=== PATIENT | female | born 1990 | race Caucasian/White ===

== ENCOUNTER 2017-05-07 18:50 | Emergency (ER) | payer MEDICARE, MEDICAID ==
[2017-05-07] MEDS ORDERED: Sodium Chloride 0.9% 1,000 ML IV ONE (18:57)
[2017-05-07] MEDS ORDERED: Sodium Chloride 0.9% 2.5 ML Syringe FLUSH PRN (18:57)
[2017-05-07] MEDS ORDERED: Sodium Chloride 0.9% 10 ML Syringe FLUSH PRN (18:57)
--- NOTE | 2017-05-07 19:00 | EDM.PDOC ---
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 Past medical history: As per history of present illness and as reviewed below otherwise noncontributory. Surgical history: As per history of present illness and as reviewed below otherwise noncontributory. Social history: No reported history of drug or alcohol abuse. Family history: As per history of present illness and as reviewed below otherwise noncontributory. Physical exam: HEENT: Minor intraoral injury good hemostasis, normocephalic, pupils reactive, negative for conjunctival pallor or scleral icterus, mucous membranes moist, throat clear, neck supple, nontender, trachea midline. Lungs: Clear to auscultation, breath sounds equal bilaterally, chest nontender. Heart: S1S2, regular, negative for clicks, rubs, or JVD. Abdomen: Soft, nondistended, nontender. Negative for masses or hepatosplenomegaly. Negative for costovertebral tenderness. Pelvis: Stable nontender. Genitourinary: Deferred. Rectal: Deferred. Extremities: Atraumatic, negative for cords or calf pain. Neurovascular unremarkable. Neuro: Awake, alert, oriented. Follows commands moves all extremities does have somewhat persistent horizontal nystagmus Diagnostics: EBC CMP EKG hCG CT brain CT C-spine chest x-ray Therapeutics: IV O2 monitor Impression: #1 seizure #2 history of cerebral palsy Definitive disposition and diagnosis as appropriate pending reevaluation and review of above. - Related Data Allergies Allergy/AdvReac Type Severity Reaction Status Date / Time No Known Allergies Allergy Verified 05/07/17 18:58 Home Meds: Home Meds Cetirizine HCl [Zyrtec] 10 mg PO DAILY 11/19/15 [History] ClonazePAM [KlonoPIN] 0.5 mg PO BID 11/19/15 [History] Levonorgestrel-Ethin Estradiol [Jolessa] 1 each PO DAILY 11/19/15 [History] Methylphenidate HCl [Methylphenidate ER] 36 mg PO DAILY 11/19/15 [History] PARoxetine HCl [Paroxetine HCl] 40 mg PO DAILY 11/19/15 [History] busPIRone HCl [busPIRone] 30 mg PO BID 11/19/15 [History] Past Medical History - Past Surgical History GI Surgical History: Reports: Hernia Repair/Other Neurological Surgical History: Reports: Other (See Below) Musculoskeletal Surgical History: Reports: Other (See Below) Other Musculoskeletal Surgeries/Procedures:: heel cord transfer Social & Family History - Family History Family Medical History: Noncontributory - Tobacco Use Smoking Status *Q: Never Smoker - Recreational Drug Use Recreational Drug Use: No ED ROS GENERAL - Review of Systems Review Of Systems: ROS reveals no pertinent complaints other than HPI. ED EXAM, GENERAL - Physical Exam Exam: See Below (See dictation) Course - Vital Signs Last Recorded V/S: Last Vital Signs Temp 36.4 C 05/07/17 18:59 Pulse 103 H 05/07/17 20:02 Resp 18 05/07/17 20:02 BP 135/90 05/07/17 20:02 Pulse Ox 98 05/07/17 20:02 - Orders/Labs/Meds Orders: Active Orders 24 hr Category Date Time Status Cardiac Monitoring [RC] . DIRECTED Care 05/07/17 18:57 Active EKG Documentation Completion [RC] STAT Care 05/07/17 18:57 Active Pulse Oximetry [RC] ASDIRECTED Care 05/07/17 18:57 Active Cervical Spine wo Cont [CT] Stat Exams 05/07/17 18:57 Taken Chest 1V Frontal [CR] Stat Exams 05/07/17 18:57 Taken Head wo Cont [CT] Stat Exams 05/07/17 18:57 Taken Sodium Chloride 0.9% [Saline Flush] Med 05/07/17 18:57 Active 10 ml FLUSH ASDIRECTED PRN Sodium Chloride 0.9% [Saline Flush] Med 05/07/17 18:57 Active 2.5 ml FLUSH ASDIRECTED PRN Saline Lock Insert [OM.PC] Stat Oth 05/07/17 18:57 Ordered Medication Orders Sodium Chloride (Saline Flush) 10 ml FLUSH ASDIRECTED PRN PRN Reason: Keep Vein Open Last Admin: 05/07/17 19:06 Dose: 10 ml Sodium Chloride (Saline Flush) 2.5 ml FLUSH ASDIRECTED PRN PRN Reason: Keep Vein Open Last Admin: 05/07/17 19:05 Dose: 2.5 ml Labs: Laboratory Tests 05/07/17 05/07/17 05/07/17 Range/Units 19:00 19:00 19:00 WBC 8.55 (4.0-11.0) K/uL RBC 4.76 (4.30-5.90) M/uL Hgb 11.9 L (12.0-16.0) g/dL Hct 37.8 (36.0-46.0) % MCV 79.4 L (80.0-98.0) fL MCH 25.0 L (27.0-32.0) pg MCHC 31.5 (31.0-37.0) g/dL RDW Std Deviation 48.7 (28.0-62.0) fl RDW Coeff of Peyton 17 H (11.0-15.0) % Plt Count 373 (150-400) K/uL MPV 10.00 (7.40-12.00) fL Neut % (Auto) 46.2 L (48.0-80.0) % Lymph % (Auto) 42.6 H (16.0-40.0) % [place] % (Auto) 8.5 (0.0-15.0) % Eos % (Auto) 2.0 (0.0-7.0) % Baso % (Auto) 0.7 (0.0-1.5) % Neut # (Auto) 4.0 (1.4-5.7) K/uL Lymph # (Auto) 3.6 H (0.6-2.4) K/uL [place] # (Auto) 0.7 (0.0-0.8) K/uL Eos # (Auto) 0.2 (0.0-0.7) K/uL Baso # (Auto) 0.1 (0.0-0.1) K/uL Nucleated RBC % 0.0 /100WBC Nucleated RBCs # 0 K/uL INR 1.12 Sodium 140 (136-146) mmol/L Potassium 4.3 (3.5-5.1) mmol/L Chloride 109 (98-110) mmol/L Carbon Dioxide 13 L (21-31) mmol/L BUN 10 (6.0-23.0) mg/dL Creatinine 1.2 (0.6-1.5) mg/dL Est Cr Clr Drug Dosing 50.13 mL/min Estimated GFR (MDRD) 53.5 ml/min Glucose 82 (60-110) mg/dL Calcium 9.1 (8.8-10.8) mg/dL Total Bilirubin 0.2 (0.1-1.5) mg/dL AST 24 (5-40) IU/L ALT 25 (8-54) IU/L Alkaline Phosphatase 78 (40-150) Total Protein 7.5 (6.0-8.0) g/dL Albumin 4.3 (3.5-5.0) g/dL Globulin 3.2 (2.0-3.5) g/dL Albumin/Globulin Ratio 1.3 (1.3-2.8) HCG, Qual (NEG) 05/07/17 Range/Units 19:00 WBC (4.0-11.0) K/uL RBC (4.30-5.90) M/uL Hgb (12.0-16.0) g/dL Hct (36.0-46.0) % MCV (80.0-98.0) fL MCH (27.0-32.0) pg MCHC (31.0-37.0) g/dL RDW Std Deviation (28.0-62.0) fl RDW Coeff of Peyton (11.0-15.0) % Plt Count (150-400) K/uL MPV (7.40-12.00) fL Neut % (Auto) (48.0-80.0) % Lymph % (Auto) (16.0-40.0) % [place] % (Auto) (0.0-15.0) % Eos % (Auto) (0.0-7.0) % Baso % (Auto) (0.0-1.5) % Neut # (Auto) (1.4-5.7) K/uL Lymph # (Auto) (0.6-2.4) K/uL [place] # (Auto) (0.0-0.8) K/uL Eos # (Auto) (0.0-0.7) K/uL Baso # (Auto) (0.0-0.1) K/uL Nucleated RBC % /100WBC Nucleated RBCs # K/uL INR Sodium (136-146) mmol/L Potassium (3.5-5.1) mmol/L Chloride (98-110) mmol/L Carbon Dioxide (21-31) mmol/L BUN (6.0-23.0) mg/dL Creatinine (0.6-1.5) mg/dL Est Cr Clr Drug Dosing mL/min Estimated GFR (MDRD) ml/min Glucose (60-110) mg/dL Calcium (8.8-10.8) mg/dL Total Bilirubin (0.1-1.5) mg/dL AST (5-40) IU/L ALT (8-54) IU/L Alkaline Phosphatase (40-150) Total Protein (6.0-8.0) g/dL Albumin (3.5-5.0) g/dL Globulin (2.0-3.5) g/dL Albumin/Globulin Ratio (1.3-2.8) HCG, Qual NEGATIVE (NEG) Meds: Medications Generic Name Dose Route Start Last Admin Trade Name Freq PRN Reason Stop Dose Admin Sodium Chloride 10 ml 05/07/17 18:57 05/07/17 19:06 Saline Flush FLUSH 10 ml ASDIRECTED PRN Administration Keep Vein Open Sodium Chloride 2.5 ml 05/07/17 18:57 05/07/17 19:05 Saline Flush FLUSH 2.5 ml ASDIRECTED PRN Administration Keep Vein Open Discontinued Medications Generic Name Dose Route Start Last Admin Trade Name Freq PRN Reason Stop Dose Admin Sodium Chloride 1,000 mls @ 999 mls/hr 05/07/17 18:57 05/07/17 19:05 Normal Saline IV 05/07/17 19:57 999 mls/hr STAT ONE Administration Departure - Departure Time of Disposition: 21:02 Disposition: Home, Self-Care 01 Condition: Good Clinical Impression: Seizure - Discharge Information Additional Instructions: The following information is given to patients seen in the emergency department who are being discharged to home. This information is to outline your options for follow-up care. We provide all patients seen in our emergency department with a follow-up referral. The need for follow-up, as well as the timing and circumstances, are variable depending upon the specifics of your emergency department visit. If you don't have a primary care physician on staff, we will provide you with a referral. We always advise you to contact your personal physician following an emergency department visit to inform them of the circumstance of the visit and for follow-up with them and/or the need for any referrals to a consulting specialist. The emergency department will also refer you to a specialist when appropriate. This referral assures that you have the opportunity for followup care with a specialist. All of these measure are taken in an effort to provide you with optimal care, which includes your followup. Under all circumstances we always encourage you to contact your private physician who remains a resource for coordinating your care. When calling for followup care, please make the office aware that this follow-up is from your recent emergency room visit. If for any reason you are refused follow-up, please contact the [facility] emergency department at and asked to speak to the emergency department charge nurse. Continue current meds follow-up primary medical doctor neurology referral as discussed return as needed as discussed - My Orders Last 24 Hours: My Active Orders 05/07/17 18:57 Cardiac Monitoring [RC] . DIRECTED EKG Documentation Completion [RC] STAT Pulse Oximetry [RC] ASDIRECTED Cervical Spine wo Cont [CT] Stat Chest 1V Frontal [CR] Stat Head wo Cont [CT] Stat Sodium Chloride 0.9% [Saline Flush] 10 ml FLUSH ASDIRECTED PRN Sodium Chloride 0.9% [Saline Flush] 2.5 ml FLUSH ASDIRECTED PRN Saline Lock Insert [OM.PC] Stat - Assessment/Plan Last 24 Hours: My Active Orders 05/07/17 18:57 Cardiac Monitoring [RC] . DIRECTED EKG Documentation Completion [RC] STAT Pulse Oximetry [RC] ASDIRECTED Cervical Spine wo Cont [CT] Stat Chest 1V Frontal [CR] Stat Head wo Cont [CT] Stat Sodium Chloride 0.9% [Saline Flush] 10 ml FLUSH ASDIRECTED PRN Sodium Chloride 0.9% [Saline Flush] 2.5 ml FLUSH ASDIRECTED PRN Saline Lock Insert [OM.PC] Stat
[2017-05-07 22:05] VITALS: BP 125/84
--- NOTE | 2017-05-08 14:31 | CR ---
EXAM DATE: 05/07/17 PATIENT'S AGE: 26 Patient: CAMDEN REICH Facility: [place], [place] Site . Site : 1990 Study: XRay Chest [id number]/22/2018 7:55:36 PM Ordering Physician: El Maloney Final Report: INDICATION: Seizure. TECHNIQUE: Chest radiograph 1 view COMPARISON: None FINDINGS: Single AP upright view of the chest. Shunt catheter material extends from the right neck towards the right upper abdomen. Lungs are clear. Heart size and mediastinal contours within normal limits. Bones and soft tissues unremarkable. Visualized upper abdominal bowel gas pattern within normal limits. IMPRESSION: 1. No acute cardiopulmonary disease is seen. Dictated by Brad Son MD @ 05/07/2017 8:10:10 PM Dictated by: Brad Son MD @ 05/07/2017 20:10:19 (Electronic Signature) Report Signed by Proxy. [facility]
--- NOTE | 2017-05-08 14:32 | CT ---
EXAM DATE: 05/07/17 PATIENT'S AGE: 26 Patient: CAMDEN REICH Facility: [place], [place] Site . Site : 1990 Study: CT Head WO CONT [id number]/22/2018 8:07:50 PM Ordering Physician: El Maloney Final Report: INDICATION: Head pain, seizure today. History of shunt. TECHNIQUE: CT head without i.v. contrast. COMPARISON: Prior head CT dated 11/19/2015. FINDINGS: Right frontal shunt catheter, tip position unchanged. 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 Stable appearance to the decompressed lateral ventricles. 4th ventricle and basal cisterns are unchanged. No hemorrhage or mass effect. No abnormal extra-axial fluid collection. Calvarium intact. Paranasal sinuses and mastoid air cells are clear. IMPRESSION: 1. Stable head CT findings from comparison study dated 11/19/2015. Stable positioning of right frontal shunt catheter. Dictated by Brad Son MD @ 05/07/2017 8:45:33 PM Dictated by: Brad Son MD @ 05/07/2017 20:46:00 (Electronic Signature) Report Signed by Proxy. [facility]
--- NOTE | 2017-05-08 14:33 | CT ---
EXAM DATE: 05/07/17 PATIENT'S AGE: 26 Patient: CAMDEN REICH Facility: [place], [place] Site . Site : 1990 Study: CT Spine Cervical WO CONT [id number] 8:09:33 PM Ordering Physician: El Maloney Final Report: INDICATION: Pain, seizure TECHNIQUE: CT cervical spine without contrast. COMPARISON: FINDINGS: Vertebral alignment: Alignment is normal. Vertebrae: There are no fractures or suspicious bony lesions. Discs and facet joints: Disc spaces and facets are within normal limits. Extraspinal findings: Prevertebral soft tissues, visualized airway, and visualized lungs are unremarkable. 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 IMPRESSION: Unremarkable cervical spine CT. Please note that all CT scans at this facility use dose modulation, iterative reconstruction, and/or weight-based dosing when appropriate to reduce radiation dose to as low as reasonably achievable. Dictated by Caleb Devlin MD @ May 07 2017 8:19PM (Electronic Signature) Report Signed by Proxy. [facility]
== END 2017-05-07 21:29 | disposition home or self-care (01) ==
LOC: MW.ED 18:50
DX: R56.9 Unspecified convulsions (principal); Z79.899 Other long term (current) drug therapy; Z86.69 Personal history of other diseases of the nervous system and sense organs
CPT/HCPCS: 36415; 70450; 71045; 72125; 80053; 84703; 85025; 85610; 93005; 96360; 96361; 99285; J7040; 99283

== ENCOUNTER 2020-07-07 16:48 | Emergency (ER) | payer MEDICARE, MEDICAID ==
--- NOTE | 2020-07-07 17:51 | EDM.PDOC ---
ED HPI GENERAL MEDICAL PROBLEM - General Chief Complaint: Neurological Problem Stated Complaint: BIMP IN BACK OF HEAD, POSSIBLE SIEZURES Time Seen by Provider: 07/07/20 16:57 Source of Information: Reports: Patient History Limitations: Reports: No Limitations - History of Present Illness INITIAL COMMENTS - FREE TEXT/NARRATIVE: Patient is a 29-year-old female has a COTTON WEIGHER shunt that presents today after a possible fall/seizures. Patient also has history of seizures takes Keppra. Patient has seizures every 2 to 3 years. Patient states that she is not sure if she had seizures not member falling or waking up being confused. Patient had a CT because she has a bruise in the back of her leg and also this will dent in the back of her head. Patient otherwise been at her baseline per patient's twin sister. Patient's been eating feeding is normal and no signs of infection particular medication regularly. Head Pain Score (Numeric/FACES): 8 - Related Data Allergies Allergy/AdvReac Type Severity Reaction Status Date / Time No Known Allergies Allergy Verified 07/07/20 17:37 Home Meds: Home Meds busPIRone HCl [busPIRone] 30 mg PO BID 11/19/15 [History] ARIPiprazole [Abilify] 5 mg PO BEDTIME 07/07/20 [History] Citalopram [Citalopram HBr] 20 mg PO DAILY 07/07/20 [History] Dexmethylphenidate HCl [Dexmethylphenidate HCl ER] 20 mg PO 07/07/20 [History] NIFEdipine [Nifedipine ER] 60 mg PO DAILY 07/07/20 [History] levETIRAcetam [Keppra] 500 mg PO BID 07/07/20 [History] Past Medical History HEENT History: Reports: None Cardiovascular History: Reports: None Respiratory History: Reports: None Gastrointestinal History: Reports: None Genitourinary History: Reports: None [employer] History: Reports: None Musculoskeletal History: Reports: None Neurological History: Reports: Seizure Psychiatric History: Reports: None Endocrine/Metabolic History: Reports: None Hematologic History: Reports: None Immunologic History: Reports: None Oncologic (Cancer) History: Reports: None Dermatologic History: Reports: None - Infectious Disease History Infectious Disease History: Reports: Chicken Pox - Past Surgical History HEENT Surgical History: Reports: None Cardiovascular Surgical History: Reports: None Respiratory Surgical History: Reports: None Female Surgical History: Reports: None Endocrine Surgical History: Reports: None Oncologic Surgical History: Reports: None Dermatological Surgical History: Reports: None Social & Family History - Family History Family Medical History: No Pertinent Family History - Caffeine Use Caffeine Use: Reports: Soda ED ROS GENERAL - Review of Systems Review Of Systems: See Below Constitutional: Reports: No Symptoms HEENT: Reports: No Symptoms Respiratory: Reports: No Symptoms Cardiovascular: Reports: No Symptoms Endocrine: Reports: No Symptoms GI/Abdominal: Reports: No Symptoms : Reports: No Symptoms Musculoskeletal: Reports: No Symptoms Skin: Reports: No Symptoms Neurological: Reports: Seizure Psychiatric: Reports: No Symptoms Hematologic/Lymphatic: Reports: No Symptoms Immunologic: Reports: No Symptoms ED EXAM, NEURO - Physical Exam Exam: See Below Exam Limited By: No Limitations General Appearance: Alert, WD/WN Eye Exam: Bilateral Eye: EOMI, Nystagmus, PERRL Head Exam: Atraumatic Respiratory/Chest: No Respiratory Distress, Lungs Clear Cardiovascular: Normal Peripheral Pulses, Regular Rate, Rhythm, No Edema GI/Abdominal: Normal Bowel Sounds, Soft, Non-Tender Neurological: Alert, No Motor/Sensory Deficits, Oriented x 3 Course - Vital Signs Last Recorded V/S: Last Vital Signs Temp 99.5 F 07/07/20 17:33 Pulse 128 H 07/07/20 17:33 Resp 19 07/07/20 17:33 BP 127/83 07/07/20 17:33 Pulse Ox 98 07/07/20 17:33 - Orders/Labs/Meds Orders: Active Orders 24 hr Category Date Time Status Abdomen 2V AP Flat Upright [CR] Stat Exams 07/07/20 17:51 Ordered Cervical Spine 2V or 3V [CR] Stat Exams 07/07/20 17:51 Ordered Chest 2V [CR] Stat Exams 07/07/20 17:51 Ordered Skull Less 4V [CR] Stat Exams 07/07/20 17:51 Ordered COMPREHENSIVE METABOLIC PN,CMP [CHEM] Stat Lab 07/07/20 18:00 Received Labs: Laboratory Tests 07/07/20 07/07/20 Range/Units 18:00 18:15 WBC 8.62 (4.0-11.0) K/uL RBC 4.72 (4.30-5.90) M/uL Hgb 13.5 (12.0-16.0) g/dL Hct 41.2 (36.0-46.0) % MCV 87.3 (80.0-98.0) fL MCH 28.6 (27.0-32.0) pg MCHC 32.8 (31.0-37.0) g/dL RDW Std Deviation 42.4 (28.0-62.0) fl RDW Coeff of Peyton 13 (11.0-15.0) % Plt Count 294 (150-400) K/uL MPV 9.60 (7.40-12.00) fL Neut % (Auto) 62.7 (48.0-80.0) % Lymph % (Auto) 25.5 (16.0-40.0) % [place] % (Auto) 9.9 (0.0-15.0) % Eos % (Auto) 1.4 (0.0-7.0) % Baso % (Auto) 0.5 (0.0-1.5) % Neut # (Auto) 5.4 (1.4-5.7) K/uL Lymph # (Auto) 2.2 (0.6-2.4) K/uL [place] # (Auto) 0.9 H (0.0-0.8) K/uL Eos # (Auto) 0.1 (0.0-0.7) K/uL Baso # (Auto) 0.0 (0.0-0.1) K/uL Nucleated RBC % 0.0 /100WBC Nucleated RBCs # 0 K/uL Urine Color YELLOW Urine Appearance CLEAR Urine pH 6.0 (5.0-8.0) Ur Specific [place] <= 1.005 (1.001-1.035) Urine Protein NEGATIVE (NEGATIVE) mg/dL Urine Glucose (UA) NEGATIVE (NEGATIVE) mg/dL Urine Ketones NEGATIVE (NEGATIVE) mg/dL Urine Occult Blood NEGATIVE (NEGATIVE) Urine Nitrite NEGATIVE (NEGATIVE) Urine Bilirubin NEGATIVE (NEGATIVE) Urine Urobilinogen 0.2 (<2.0) EU/dL Ur Leukocyte Esterase NEGATIVE (NEGATIVE) - Re-Assessments/Exams Free Text/Narrative Re-Assessment/Exam: 07/07/20 18:49 CT and COTTON WEIGHER shunt still pending will be signed out to oncoming attending. Departure - Departure Time of Disposition: 18:49 Disposition: Still A Patient 28 Clinical Impression: Head injury - Discharge Information Referrals: Kae Newberry PA [Primary Care Provider] - Forms: ED Department Discharge Sepsis Event Note (ED) - Evaluation Sepsis Screening Result: No Definite Risk - Focused Exam Vital Signs: Vital Signs Temp Pulse Resp BP Pulse Ox 07/07/20 17:33 99.5 F 128 H 19 127/83 98 - My Orders Last 24 Hours: My Active Orders 07/07/20 17:51 Abdomen 2V AP Flat Upright [CR] Stat Cervical Spine 2V or 3V [CR] Stat Chest 2V [CR] Stat Skull Less 4V [CR] Stat 07/07/20 18:00 COMPREHENSIVE METABOLIC PN,CMP [CHEM] Stat - Assessment/Plan Last 24 Hours: My Active Orders 07/07/20 17:51 Abdomen 2V AP Flat Upright [CR] Stat Cervical Spine 2V or 3V [CR] Stat Chest 2V [CR] Stat Skull Less 4V [CR] Stat 07/07/20 18:00 COMPREHENSIVE METABOLIC PN,CMP [CHEM] Stat Plan: Patient is a 29-year-old female presents today for possible seizure. Will look for causes of breakthrough seizure. Patient also has a COTTON WEIGHER shunt will check COTTON WEIGHER shunt to make sure still patent.
[2020-07-07 18:48] LABS: BLOOD UREA NITROGEN,BUN 13 mg/dL (7.0-18.0); CARBON DIOXIDE,CO2 22.7 mmol/L (21.0-32.0); CHLORIDE,CL 102 mmol/L (98-107); GLUCOSE RANDOM 130 mg/dL (74-106); POTASSIUM,K 3.7 mmol/L (3.5-5.1); SODIUM,NA 137 mmol/L (136-145)
--- NOTE | 2020-07-07 19:51 | CR ---
INDICATION: Evaluate MIXING PAN TENDER shunt. COMPARISON: Chest radiograph from today and chest radiograph from 05/07/2017 TECHNIQUE: A shunt series is performed with AP and lateral views of the skull, chest, and abdomen. FINDINGS: There is a right anterior parietal shunt catheter with its tip located in the area of the lateral ventricle on the left. The bulb and fell between the ventriculostomy portion of the shunt and the cervical portion of the shunt is radiolucent, and disconnection of this portion cannot be excluded. The cervical portion of the shunt passes down the neck to cross the anterior right chest. There is discontinuity of the shunt catheter at the C6 level, with approximately 1 centimeter of separation of the ends of the tubing. There is an old shunt catheter extending from the level of the mastoid to the C4-5 level, not present on the previous chest radiograph from 2018. There was a defect in the shunt tubing at this level on the previous chest radiograph, and I suspect that the current shunt has been placed since 2018. An old, abandoned piece of shunt tubing is seen extending from the level of the mastoid to the C4-5 level. The catheter then passes into the abdomen where the tip is located in the inferior paramedian left pelvis. The visualized portions of the skull are normal in appearance aside from the vivi hole for the ventriculostomy. The osseous structures of the calvarium, orbits, sinuses, and mandible are unremarkable. No significant abnormality is seen in the cervical or thoracic spines. In the chest, the lungs are clear. The heart is normal in size the mediastinum is normal in appearance. The bowel gas pattern and osseous structures in the abdomen are normal in appearance. IMPRESSION: New fracture of the right ventriculoperitoneal shunt catheter in the right lower neck at the C6 level. The rest of the shunt catheter appears to be intact. Old piece of shunt tubing seen in the right neck, probably the shunt present on the chest radiograph from 2018. Dictated by Judah Allison MD @ Jul 07 2020 7:42PM Signed by Dr. Judah Allison @ Jul 07 2020 7:51PM
--- NOTE | 2020-07-07 21:15 | EDM.PDOC ---
ED HPI GENERAL MEDICAL PROBLEM - General Chief Complaint: Neurological Problem Stated Complaint: BIMP IN BACK OF HEAD, POSSIBLE SIEZURES Time Seen by Provider: 07/07/20 16:57 Source of Information: Reports: Patient History Limitations: Reports: No Limitations - History of Present Illness INITIAL COMMENTS - FREE TEXT/NARRATIVE: HISTORY AND PHYSICAL: History of present illness: Signout received at [address] Pryor. Patient has been seen and evaluated by me. In brief: This is a 29-year-old female with a history significant for cerebral palsy who has had a TRANSPORT OPERATIONS INSPECTOR shunt placed as a child. Patient presents to the ER today secondary to headache and not feeling right. Patient's twin sister is at bedside and assisting with patient's history. Patient reports that she has had seizures in the past x2. Patient's first seizure was in 2015. Patient's last seizure within 2017. Patient reports that she has not had any seizure or seizure activity since. Patient's sister is concerned that she might of had a seizure on Sunday. Patient's sister reports that on Sunday, the patient reported that she was feeling somewhat confused and was noticing a bruise on her right wrist and her left calf that were new. Patient was also experiencing a headache and felt like she had some discomfort in her posterior occiput. Patient does not recall having had a seizure but she reports that she is not able to exclude whether or not she did. Given her confusion on Sunday and the new bruises, a sister brought her into the ER today for further evaluation. Patient reports that she has been extremely compliant with her antiepileptic medications. She has been taking her Keppra as directed. She denies any recent fevers, shakes, chills, nausea, vomiting, diarrhea, dysuria, frequency, urgency, chest pain, shortness of breath. Patient is visually impaired at baseline but denies any changes. Patient denies any weakness to her upper or lower extremities. Patient does report pain and discomfort in her posterior occiput radiating to the top of her head. She has been able to tolerate p.o. solids and liquids well. Patient sister reports that currently she does not appear to be confused and appears to be back to her baseline mentation. Patient sister reports that she has been seen and evaluated in [facility] and has a neurosurgeon that assists with long-term care of her TRANSPORT OPERATIONS INSPECTOR shunt. She reports that she has had one revision approximately 8 to 10 years ago and has had no complications since then with the TRANSPORT OPERATIONS INSPECTOR shunt. Review of systems: As per history of present illness and below otherwise all systems reviewed and negative. Past medical history: As per history of present illness and as reviewed below otherwise noncontributory. Surgical history: As per history of present illness and as reviewed below otherwise noncontributory. Social history: No reported history of drug or alcohol abuse. Family history: As per history of present illness and as reviewed below otherwise noncontributory. Physical exam: This patient was seen and evaluated during the 2019 SARS-CoV-2 novel coronavirus pandemic period. Community viral transmission is ongoing at time of this encounter and the emergency department is operating under pandemic response procedures. Constitutional: Patient is oriented to person, place, and time. Appears well- developed and well-nourished. No distress. HEENT: Moist mucous membranes Head: Normocephalic and atraumatic. Patient does have some tenderness to palpation to her posterior occiput but no soft tissue swelling, ecchymosis or ev idence of trauma is identified. Patient's sister was concerned because she felt a indentation in her posterior occiput however this appears to be most likely chronic and there is no evidence of any swelling or ecchymosis in that region. Eyes: Right eye exhibits no discharge. Left eye exhibits no discharge. No scleral icterus Neck: Normal range of motion. No tracheal deviation present. Cardiovascular: Normal rate and regular rhythm. Pulmonary: Effort normal, no respiratory distress. Abdominal: No distention Musculoskeletal: Normal range of motion Neurologic: Alert and oriented to person, place and time. Skin: [place], warm and dry. Psychiatric: Normal mood and affect. Behavior is normal. Judgment and thought content normal. Nursing note and vital signs have been reviewed Diagnostics: [] Therapeutics: [] Assessment and plan: This is a 29-year-old female who presents ER today secondary to a possible fall with questionable seizure that we have occurred 2 days prior to arrival to the ED. Patient presents ER today with her sister for further evaluation to make sure that her TRANSPORT OPERATIONS INSPECTOR shunt is operating appropriately and to make sure that she has no adverse sequela from a possible seizure. Patient is complaining of a headache and pain and discomfort in her posterior occiput. Will you we will also need to evaluate whether or not her TRANSPORT OPERATIONS INSPECTOR shunt is functioning appropriately. Patient has had a CBC and a CMP in the ED which were both within normal limits. Patient has a normal anion gap and normal bicarb level. Patient had a shunt series obtained here in the ED which shows a new fracture of the right TRANSPORT OPERATIONS INSPECTOR shunt catheter in the right lower neck at the C6 level. CT report did not reveal any acute pathology. 9:50 PM: Case was discussed with Dr. Perrin who is covering for the patient's neurosurgeon, , in [facility]. She agrees that at this time, no acute intervention is needed but she would be happy to see the patient tomorrow at noon for consultation. I have discussed this with the patient and her sister and they are in agreement with the plan. Patient will be discharged home. Patient be given a dose of Tylenol to assist with her headache and will see the neurosurgeon in [facility] tomorrow morning. Reassessment at the time of disposition demonstrates that the patient is in no acute distress. The patient has remained stable throughout the entire ED visit and is without objective evidence for acute process requiring urgent intervention or hospitalization. The patient is stable for discharge, counseling is provided as documented above, discussed symptomatic treatment and specific conditions for return. I have spoken with the patient/caregiver and discussed todays findings, in addition to providing specific details for the plan of care. Questions are answered and there is agreement with the plan. Definitive disposition and diagnosis as appropriate pending reevaluation and review of above. Head Pain Score (Numeric/FACES): 8 - Related Data Allergies Allergy/AdvReac Type Severity Reaction Status Date / Time No Known Allergies Allergy Verified 07/07/20 17:37 Home Meds: Home Meds busPIRone HCl [busPIRone] 30 mg PO BID 11/19/15 [History] ARIPiprazole [Abilify] 5 mg PO BEDTIME 07/07/20 [History] Citalopram [Citalopram HBr] 20 mg PO DAILY 07/07/20 [History] Dexmethylphenidate HCl [Dexmethylphenidate HCl ER] 20 mg PO 07/07/20 [History] NIFEdipine [Nifedipine ER] 60 mg PO DAILY 07/07/20 [History] levETIRAcetam [Keppra] 500 mg PO BID 07/07/20 [History] Past Medical History HEENT History: Reports: None Cardiovascular History: Reports: None Respiratory History: Reports: None Gastrointestinal History: Reports: None Genitourinary History: Reports: None 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: Reports: 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 Musculoskeletal History: Reports: None Neurological History: Reports: Seizure, Other (See Below) Other Neuro History: Hydrocephalus at Psychiatric History: Reports: None Endocrine/Metabolic History: Reports: None Hematologic History: Reports: None Immunologic History: Reports: None Oncologic (Cancer) History: Reports: None Dermatologic History: Reports: None - Infectious Disease History Infectious Disease History: Reports: Chicken Pox - Past Surgical History HEENT Surgical History: Reports: None Cardiovascular Surgical History: Reports: None Respiratory Surgical History: Reports: None Female Surgical History: Reports: None Endocrine Surgical History: Reports: None Oncologic Surgical History: Reports: None Dermatological Surgical History: Reports: None Social & Family History - Family History Family Medical History: No Pertinent Family History - Tobacco Use Tobacco Use Status *Q: Never Tobacco User - Caffeine Use Caffeine Use: Reports: None - Recreational Drug Use Recreational Drug Use: No ED ROS GENERAL - Review of Systems Review Of Systems: See Below ED EXAM, GENERAL - Physical Exam Exam: See Below Free Text/Narrative:: Patient is a 29-year-old female has a TRANSPORT OPERATIONS INSPECTOR shunt that presents today after a possible fall/seizures. Patient also has history of seizures takes Keppra. Patient has seizures every 2 to 3 years. Patient states that she is not sure if she had seizures not member falling or waking up being confused. Patient had a CT because she has a bruise in the back of her leg and also this will dent in the back of her head. Patient otherwise been at her baseline per patient's twin sister. Patient's been eating feeding is normal and no signs of infection particular medication regularly. Exam Limited By: No Limitations General Appearance: Alert, WD/WN Head: Atraumatic Respiratory/Chest: No Respiratory Distress, Lungs Clear Cardiovascular: Normal Peripheral Pulses, Regular Rate, Rhythm, No Edema GI/Abdominal: Normal Bowel Sounds, Soft, Non-Tender Course - Vital Signs Last Recorded V/S: Last Vital Signs Temp 99.5 F 07/07/20 17:33 Pulse 83 07/07/20 21:00 Resp 18 07/07/20 21:00 BP 123/84 07/07/20 21:00 Pulse Ox 98 07/07/20 21:00 - Orders/Labs/Meds Orders: Active Orders 24 hr Category Date Time Status Abdomen 2V AP Flat Upright [CR] Stat Exams 07/07/20 17:51 Taken Cervical Spine 2V or 3V [CR] Stat Exams 07/07/20 17:51 Taken Chest 2V [CR] Stat Exams 07/07/20 17:51 Taken Labs: Laboratory Tests 07/07/20 07/07/20 07/07/20 Range/Units 18:00 18:00 18:15 WBC 8.62 (4.0-11.0) K/uL RBC 4.72 (4.30-5.90) M/uL Hgb 13.5 (12.0-16.0) g/dL Hct 41.2 (36.0-46.0) % MCV 87.3 (80.0-98.0) fL MCH 28.6 (27.0-32.0) pg MCHC 32.8 (31.0-37.0) g/dL RDW Std Deviation 42.4 (28.0-62.0) fl RDW Coeff of Peyton 13 (11.0-15.0) % Plt Count 294 (150-400) K/uL MPV 9.60 (7.40-12.00) fL Neut % (Auto) 62.7 (48.0-80.0) % Lymph % (Auto) 25.5 (16.0-40.0) % [place] % (Auto) 9.9 (0.0-15.0) % Eos % (Auto) 1.4 (0.0-7.0) % Baso % (Auto) 0.5 (0.0-1.5) % Neut # (Auto) 5.4 (1.4-5.7) K/uL Lymph # (Auto) 2.2 (0.6-2.4) K/uL Mellette # (Auto) 0.9 H (0.0-0.8) K/uL Eos # (Auto) 0.1 (0.0-0.7) K/uL Baso # (Auto) 0.0 (0.0-0.1) K/uL Nucleated RBC % 0.0 /100WBC Nucleated RBCs # 0 K/uL Sodium 137 (136-145) mmol/L Potassium 3.7 (3.5-5.1) mmol/L Chloride 102 (98-107) mmol/L Carbon Dioxide 22.7 (21.0-32.0) mmol/L BUN 13 (7.0-18.0) mg/dL Creatinine 0.9 (0.6-1.0) mg/dL Est Cr Clr Drug Dosing 65.05 mL/min Estimated GFR (MDRD) > 60.0 ml/min Glucose 130 H (74-106) mg/dL Calcium 8.6 (8.5-10.1) mg/dL Total Bilirubin 0.2 (0.2-1.0) mg/dL AST 22 (15-37) IU/L ALT 29 (14-63) IU/L Alkaline Phosphatase 93 (46-116) U/L Total Protein 7.9 (6.4-8.2) g/dL Albumin 4.0 (3.4-5.0) g/dL Globulin 3.9 (2.6-4.0) g/dL Albumin/Globulin Ratio 1.0 (0.9-1.6) Urine Color YELLOW Urine Appearance CLEAR Urine pH 6.0 (5.0-8.0) Ur Specific [place] <= 1.005 (1.001-1.035) Urine Protein NEGATIVE (NEGATIVE) mg/dL Urine Glucose (UA) NEGATIVE (NEGATIVE) mg/dL Urine Ketones NEGATIVE (NEGATIVE) mg/dL Urine Occult Blood NEGATIVE (NEGATIVE) Urine Nitrite NEGATIVE (NEGATIVE) Urine Bilirubin NEGATIVE (NEGATIVE) Urine Urobilinogen 0.2 (<2.0) EU/dL Ur Leukocyte Esterase NEGATIVE (NEGATIVE) Urine HCG, Qual (NEGATIVE) 07/07/20 Range/Units 18:15 WBC (4.0-11.0) K/uL RBC (4.30-5.90) M/uL Hgb (12.0-16.0) g/dL Hct (36.0-46.0) % MCV (80.0-98.0) fL MCH (27.0-32.0) pg MCHC (31.0-37.0) g/dL RDW Std Deviation (28.0-62.0) fl RDW Coeff of Peyton (11.0-15.0) % Plt Count (150-400) K/uL MPV (7.40-12.00) fL Neut % (Auto) (48.0-80.0) % Lymph % (Auto) (16.0-40.0) % [place] % (Auto) (0.0-15.0) % Eos % (Auto) (0.0-7.0) % Baso % (Auto) (0.0-1.5) % Neut # (Auto) (1.4-5.7) K/uL Lymph # (Auto) (0.6-2.4) K/uL [place] # (Auto) (0.0-0.8) K/uL Eos # (Auto) (0.0-0.7) K/uL Baso # (Auto) (0.0-0.1) K/uL Nucleated RBC % /100WBC Nucleated RBCs # K/uL Sodium (136-145) mmol/L Potassium (3.5-5.1) mmol/L Chloride (98-107) mmol/L Carbon Dioxide (21.0-32.0) mmol/L BUN (7.0-18.0) mg/dL Creatinine (0.6-1.0) mg/dL Est Cr Clr Drug Dosing mL/min Estimated GFR (MDRD) ml/min Glucose (74-106) mg/dL Calcium (8.5-10.1) mg/dL Total Bilirubin (0.2-1.0) mg/dL AST (15-37) IU/L ALT (14-63) IU/L Alkaline Phosphatase (46-116) U/L Total Protein (6.4-8.2) g/dL Albumin (3.4-5.0) g/dL Globulin (2.6-4.0) g/dL Albumin/Globulin Ratio (0.9-1.6) Urine Color Urine Appearance Urine pH (5.0-8.0) Ur Specific [place] (1.001-1.035) Urine Protein (NEGATIVE) mg/dL Urine Glucose (UA) (NEGATIVE) mg/dL Urine Ketones (NEGATIVE) mg/dL Urine Occult Blood (NEGATIVE) Urine Nitrite (NEGATIVE) Urine Bilirubin (NEGATIVE) Urine Urobilinogen (<2.0) EU/dL Ur Leukocyte Esterase (NEGATIVE) Urine HCG, Qual NEGATIVE (NEGATIVE) Departure - Departure Time of Disposition: 21:51 Disposition: Home, Self-Care 01 Condition: Good Clinical Impression: Head injury Qualifiers: Encounter type: initial encounter Qualified Code(s): S09.90XA - Unspecified injury of head, initial encounter Headache Qualifiers: Headache type: unspecified Headache chronicity pattern: acute headache Intractability: intractable Qualified Code(s): R51.9 - Headache, unspecified Malfunction of ventriculoperitoneal shunt Qualifiers: Encounter type: initial encounter Qualified Code(s): T85.09XA - Other mec hanical complication of ventricular intracranial (communicating) shunt, initial encounter - Discharge Information Instructions: General Headache Without Cause Referrals: Kae Newberry PA [Primary Care Provider] - Forms: ED Department Discharge Additional Instructions: You were seen and evaluated in the ER today secondary to your headache and a possible seizure earlier today. During her evaluation it was noted that your TRANSPORT OPERATIONS INSPECTOR shunt has a fracture and it at the level of C6. I have discussed the case with Dr. Perrin in [facility]. She is currently covering for your neurosurgeon. At this time, we feel that there is no acute emergent issues that would require emergent transfer to [facility]. She has recommended that you come to [facility] to see her in the office tomorrow at noon time and she would be happy to assist with consultation. Please return to the ER if you have any further concerns or any new or concerning symptoms. The following information is given to patients seen in the emergency department who are being discharged to home. This information is to outline your options for follow-up care. We provide all patients seen in our emergency department with a follow-up referral. The need for follow-up, as well as the timing and circumstances, are variable depending upon the specifics of your emergency department visit. If you don't have a primary care physician on staff, we will provide you with a referral. We always advise you to contact your personal physician following an emergency department visit to inform them of the circumstance of the visit and for follow-up with them and/or the need for any referrals to a consulting specialist. The emergency department will also refer you to a specialist when appropriate. This referral assures that you have the opportunity for follow-up care with a specialist. All of these measure are taken in an effort to provide you with optimal care, which includes your follow-up. Under all circumstances we always encourage you to contact your private physician who remains a resource for coordinating your care. When calling for follow-up care, please make the office aware that this follow-up is from your recent emergency room visit. If for any reason you are refused follow-up, please contact the [facility] Emergency Department at and asked to speak to the emergency department charge nurse. [facility] [address] [place] [id number] [address] Sepsis Event Note (ED) - Evaluation Sepsis Screening Result: No Definite Risk - Focused Exam Vital Signs: Vital Signs Temp Pulse Resp BP Pulse Ox 07/07/20 21:00 83 18 123/84 98 07/07/20 17:33 99.5 F 128 H 19 127/83 98
--- NOTE | 2020-07-07 21:29 | CT ---
Indication: Headache, injury, CASH APPLICATIONS COORDINATOR shunt Technique: Nonenhanced axial CT imaging through the head. Sagittal and coronal reconstructions are provided. Comparison: CT head without contrast 05/07/2017 Findings: There is no intracranial hemorrhage, cerebral edema, or mass effect. 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 Shunt catheter entering through right frontal approach, terminating in the region of the left frontal horn, is in stable position. Size of the ventricles is unchanged. Note is made of stable enlargement of the quadrigeminal plate cistern. The basal cisterns are patent. The calvarium is intact. The visualized paranasal sinuses and mastoid air cells are aerated. Impression: No acute abnormality. Stable shunt catheter position and ventricle size. Please note that all CT scans at this facility use dose modulation, iterative reconstruction, and/or weight-based dosing when appropriate to reduce radiation dose to as low as reasonably achievable. Dictated by Sophia Renteria MD @ Jul 07 2020 9:23PM Signed by Dr. Sophia Renteria @ Jul 07 2020 9:28PM
[2020-07-07 22:17] VITALS: BP 115/76; PULSE 85
== END 2020-07-07 22:07 | disposition home or self-care (01) ==
LOC: MW.ED 16:48
DX: S09.90XA Unspecified injury of head, initial encounter (principal); T85.09XA Other mechanical complication of ventricular intracranial (communicating) shunt, initial encounter; R56.9 Unspecified convulsions; Z79.899 Other long term (current) drug therapy; W01.0XXA Fall on same level from slipping, tripping and stumbling without subsequent striking against object, initial encounter
CPT/HCPCS: 36415; 70250; 70250-26; 70450; 70450-26; 71046; 72040; 74019; 80053; 81003; 81025; 85025; 99284-25

== ENCOUNTER 2020-12-18 11:46 | Emergency (ER) | payer MEDICARE, MEDICAID ==
[2020-12-18] MEDS ORDERED: Aspirin 81 MG Tab.Chew PO ONE (11:51)
[2020-12-18] MEDS ORDERED: Sodium Chloride 0.9% 2.5 ML Syringe FLUSH PRN (11:51)
[2020-12-18] MEDS ORDERED: Sodium Chloride 0.9% 1,000 ML IV ONE ×2 (11:51→13:49)
[2020-12-18] MEDS ORDERED: Sodium Chloride 0.9% 10 ML Syringe FLUSH PRN (11:51)
[2020-12-18] MEDS ORDERED: LORazepam 2 MG/ML SDV IVPUSH ONE (11:51)
--- NOTE | 2020-12-18 11:56 | EDM.PDOC ---
ED HPI GENERAL MEDICAL PROBLEM - General Chief Complaint: Chest Pain Stated Complaint: LEFT ARM NUMB TINGLING/CHEST PAIN LEFT SIDE Time Seen by Provider: 12/18/20 11:47 Source of Information: Reports: Patient History Limitations: Reports: No Limitations - History of Present Illness INITIAL COMMENTS - FREE TEXT/NARRATIVE: 30-year-old female past medical history cerebral palsy, seizure disorder presents for chest pain. Patient states that this morning while she was reading she had a sudden onset left anterior chest pain without radiation. It is associated with shortness of breath. It is pleuritic. Patient has not noticed any lower extremity swelling or pain. No fevers or recent illnesses. Patient has not had a COVID-19 vaccination. chest Pain Score (Numeric/FACES): 6 - Related Data Allergies Allergy/AdvReac Type Severity Reaction Status Date / Time No Known Allergies Allergy Verified 12/18/20 11:54 Home Meds: Home Meds busPIRone HCl [busPIRone] 30 mg PO BID 11/19/15 [History] ARIPiprazole [Abilify] 5 mg PO BEDTIME 07/07/20 [History] Citalopram [Citalopram HBr] 20 mg PO DAILY 07/07/20 [History] Dexmethylphenidate HCl [Dexmethylphenidate HCl ER] 20 mg PO 07/07/20 [History] NIFEdipine [Nifedipine ER] 60 mg PO DAILY 07/07/20 [History] levETIRAcetam [Keppra] 500 mg PO BID 07/07/20 [History] Past Medical History HEENT History: Reports: None Cardiovascular History: Reports: None Respiratory History: Reports: None Gastrointestinal History: Reports: None Genitourinary History: Reports: None [employer] History: Reports: None Musculoskeletal History: Reports: None Neurological History: Reports: Seizure, Other (See Below) Other Neuro History: Hydrocephalus at Psychiatric History: Reports: None Endocrine/Metabolic History: Reports: None Hematologic History: Reports: None Immunologic History: Reports: None Oncologic (Cancer) History: Reports: None Dermatologic History: Reports: None - Infectious Disease History Infectious Disease History: Reports: Chicken Pox - Past Surgical History HEENT Surgical History: Reports: None Cardiovascular Surgical History: Reports: None Respiratory Surgical History: Reports: None Female Surgical History: Reports: None Endocrine Surgical History: Reports: None Oncologic Surgical History: Reports: None Dermatological Surgical History: Reports: None Social & Family History - Family History Family Medical History: No Pertinent Family History - Caffeine Use Caffeine Use: Reports: None ED ROS GENERAL - Review of Systems Review Of Systems: Comprehensive ROS is negative, except as noted in HPI. ED EXAM, GENERAL - Physical Exam Exam: See Below Exam Limited By: No Limitations General Appearance: Alert, WD/WN, No Apparent Distress, Anxious Ears: Hearing Grossly Normal Throat/Mouth: Normal Voice, No Airway Compromise Head: Atraumatic, Normocephalic Neck: Normal Inspection Respiratory/Chest: No Respiratory Distress, Lungs Clear, Normal Breath Sounds, No Accessory Muscle Use Cardiovascular: Normal Peripheral Pulses, No Edema, Tachycardia Extremities: Normal Inspection, No Pedal Edema Neurological: Alert, Normal Cognition, Normal Gait Psychiatric: Normal Affect, Normal Mood Skin Exam: Warm, Dry, Intact, Normal Color #1 Interpretation EKG Date: 12/18/20 Time: 11:51 Rhythm: NSR Rate (Beats/Min): 110 [place]: Normal P-Wave: Present QRS: Normal ST-T: Normal QT: Normal CA/PQ Interval: 138 Comparison: NA - No Prior EKG EKG Interpretation Comments: sinus tachycardia Course - Vital Signs Last Recorded V/S: Last Vital Signs Temp 98.2 F 12/18/20 13:06 Pulse 102 H 12/18/20 13:48 Resp 18 12/18/20 13:48 BP 116/77 12/18/20 13:48 Pulse Ox 97 12/18/20 13:48 - Orders/Labs/Meds Orders: Active Orders 24 hr Category Date Time Status Cardiac Monitoring [RC] . DIRECTED Care 12/18/20 11:51 Active Pulse Oximetry [RC] ASDIRECTED Care 12/18/20 11:51 Active Sodium Chloride 0.9% [Saline Flush] Med 12/18/20 11:51 Active 10 ml FLUSH ASDIRECTED PRN Sodium Chloride 0.9% [Saline Flush] Med 12/18/20 11:51 Active 2.5 ml FLUSH ASDIRECTED PRN Saline Lock Insert [OM.PC] Stat Oth 12/18/20 11:51 Ordered Medication Orders Sodium Chloride (Sodium Chloride 0.9% 10 Ml Syringe) 10 ml FLUSH ASDIRECTED PRN PRN Reason: Keep Vein Open Last Admin: 12/18/20 12:05 Dose: 10 ml Documented by: JACY Sodium Chloride (Sodium Chloride 0.9% 2.5 Ml Syringe) 2.5 ml FLUSH ASDIRECTED PRN PRN Reason: Keep Vein Open Last Admin: 12/18/20 12:05 Dose: 2.5 ml Documented by: JACY Labs: Laboratory Tests 12/18/20 12/18/20 12/18/20 Range/Units 11:52 11:52 11:52 WBC 8.17 (4.0-11.0) K/uL RBC 4.64 (4.30-5.90) M/uL Hgb 14.1 (12.0-16.0) g/dL Hct 41.7 (36.0-46.0) % MCV 89.9 (80.0-98.0) fL MCH 30.4 (27.0-32.0) pg MCHC 33.8 (31.0-37.0) g/dL RDW Std Deviation 43.9 (28.0-62.0) fl RDW Coeff of Peyton 14 (11.0-15.0) % Plt Count 306 (150-400) K/uL MPV 9.80 (7.40-12.00) fL Neut % (Auto) 66.5 (48.0-80.0) % Lymph % (Auto) 23.6 (16.0-40.0) % Amelia % (Auto) 8.7 (0.0-15.0) % Eos % (Auto) 0.6 (0.0-7.0) % Baso % (Auto) 0.6 (0.0-1.5) % Neut # (Auto) 5.4 (1.4-5.7) K/uL Lymph # (Auto) 1.9 (0.6-2.4) K/uL Amelia # (Auto) 0.7 (0.0-0.8) K/uL Eos # (Auto) 0.1 (0.0-0.7) K/uL Baso # (Auto) 0.1 (0.0-0.1) K/uL Nucleated RBC % 0.0 /100WBC Nucleated RBCs # 0 K/uL INR 1.06 APTT 25.4 (18.6-31.3) SEC D-Dimer, Quantitative 0.20 (0.0-0.50) mg/L FEU Sodium 138 (136-145) mmol/L Potassium 4.0 (3.5-5.1) mmol/L Chloride 105 (98-107) mmol/L Carbon Dioxide 23.6 (21.0-32.0) mmol/L BUN 14 (7.0-18.0) mg/dL Creatinine 1.0 (0.6-1.0) mg/dL Est Cr Clr Drug Dosing 58.01 mL/min Estimated GFR (MDRD) > 60.0 ml/min Glucose 88 (74-106) mg/dL Lactic Acid (0.4-2.0) mmol/L Calcium 8.3 L (8.5-10.1) mg/dL Magnesium 2.0 (1.8-2.4) mg/dL Total Bilirubin 0.3 (0.2-1.0) mg/dL AST 22 (15-37) IU/L ALT 31 (14-63) IU/L Alkaline Phosphatase 95 (46-116) U/L Troponin I (0.000-0.056) ng/mL Total Protein 7.7 (6.4-8.2) g/dL Albumin 4.2 (3.4-5.0) g/dL Globulin 3.5 (2.6-4.0) g/dL Albumin/Globulin Ratio 1.2 (0.9-1.6) SARS-CoV-2 RNA (JAY) (NEGATIVE) Blood Type Antibody Screen 12/18/20 12/18/20 12/18/20 Range/Units 11:52 12:03 12:10 WBC (4.0-11.0) K/uL RBC (4.30-5.90) M/uL Hgb (12.0-16.0) g/dL Hct (36.0-46.0) % MCV (80.0-98.0) fL MCH (27.0-32.0) pg MCHC (31.0-37.0) g/dL RDW Std Deviation (28.0-62.0) fl RDW Coeff of Peyton (11.0-15.0) % Plt Count (150-400) K/uL MPV (7.40-12.00) fL Neut % (Auto) (48.0-80.0) % Lymph % (Auto) (16.0-40.0) % Amelia % (Auto) (0.0-15.0) % Eos % (Auto) (0.0-7.0) % Baso % (Auto) (0.0-1.5) % Neut # (Auto) (1.4-5.7) K/uL Lymph # (Auto) (0.6-2.4) K/uL Amelia # (Auto) (0.0-0.8) K/uL Eos # (Auto) (0.0-0.7) K/uL Baso # (Auto) (0.0-0.1) K/uL Nucleated RBC % /100WBC Nucleated RBCs # K/uL INR APTT (18.6-31.3) SEC D-Dimer, Quantitative (0.0-0.50) mg/L FEU Sodium (136-145) mmol/L Potassium (3.5-5.1) mmol/L Chloride (98-107) mmol/L Carbon Dioxide (21.0-32.0) mmol/L BUN (7.0-18.0) mg/dL Creatinine (0.6-1.0) mg/dL Est Cr Clr Drug Dosing mL/min Estimated GFR (MDRD) ml/min Glucose (74-106) mg/dL Lactic Acid 1.1 (0.4-2.0) mmol/L Calcium (8.5-10.1) mg/dL Magnesium (1.8-2.4) mg/dL Total Bilirubin (0.2-1.0) mg/dL AST (15-37) IU/L ALT (14-63) IU/L Alkaline Phosphatase (46-116) U/L Troponin I < 0.050 (0.000-0.056) ng/mL Total Protein (6.4-8.2) g/dL Albumin (3.4-5.0) g/dL Globulin (2.6-4.0) g/dL Albumin/Globulin Ratio (0.9-1.6) SARS-CoV-2 RNA (JAY) NEGATIVE (NEGATIVE) Blood Type Antibody Screen 12/18/20 12/18/20 Range/Units 12:10 14:02 WBC (4.0-11.0) K/uL RBC (4.30-5.90) M/uL Hgb (12.0-16.0) g/dL Hct (36.0-46.0) % MCV (80.0-98.0) fL MCH (27.0-32.0) pg MCHC (31.0-37.0) g/dL RDW Std Deviation (28.0-62.0) fl RDW Coeff of Peyton (11.0-15.0) % Plt Count (150-400) K/uL MPV (7.40-12.00) fL Neut % (Auto) (48.0-80.0) % Lymph % (Auto) (16.0-40.0) % Amelia % (Auto) (0.0-15.0) % Eos % (Auto) (0.0-7.0) % Baso % (Auto) (0.0-1.5) % Neut # (Auto) (1.4-5.7) K/uL Lymph # (Auto) (0.6-2.4) K/uL Amelia # (Auto) (0.0-0.8) K/uL Eos # (Auto) (0.0-0.7) K/uL Baso # (Auto) (0.0-0.1) K/uL Nucleated RBC % /100WBC Nucleated RBCs # K/uL INR APTT (18.6-31.3) SEC D-Dimer, Quantitative (0.0-0.50) mg/L FEU Sodium (136-145) mmol/L Potassium (3.5-5.1) mmol/L Chloride (98-107) mmol/L Carbon Dioxide (21.0-32.0) mmol/L BUN (7.0-18.0) mg/dL Creatinine (0.6-1.0) mg/dL Est Cr Clr Drug Dosing mL/min Estimated GFR (MDRD) ml/min Glucose (74-106) mg/dL Lactic Acid (0.4-2.0) mmol/L Calcium (8.5-10.1) mg/dL Magnesium (1.8-2.4) mg/dL Total Bilirubin (0.2-1.0) mg/dL AST (15-37) IU/L ALT (14-63) IU/L Alkaline Phosphatase (46-116) U/L Troponin I < 0.050 (0.000-0.056) ng/mL Total Protein (6.4-8.2) g/dL Albumin (3.4-5.0) g/dL Globulin (2.6-4.0) g/dL Albumin/Globulin Ratio (0.9-1.6) SARS-CoV-2 RNA (JAY) (NEGATIVE) Blood Type O POSITIVE Antibody Screen NEGATIVE Meds: Medications Generic Name Dose Route Start Last Admin Trade Name Freq PRN Reason Stop Dose Admin Sodium Chloride 10 ml 12/18/20 11:51 12/18/20 12:05 Sodium Chloride 0.9% 10 Ml Syringe FLUSH 10 ml ASDIRECTED PRN Administration Keep Vein Open Sodium Chloride 2.5 ml 12/18/20 11:51 12/18/20 12:05 Sodium Chloride 0.9% 2.5 Ml Syringe FLUSH 2.5 ml ASDIRECTED PRN Administration Keep Vein Open Discontinued Medications Generic Name Dose Route Start Last Admin Trade Name Freq PRN Reason Stop Dose Admin Acetaminophen 1,000 mg 12/18/20 13:49 12/18/20 14:01 Acetaminophen 500 Mg Tab PO 12/18/20 13:50 1,000 mg ONETIME ONE Administration Aspirin 324 mg 12/18/20 11:51 12/18/20 12:04 Aspirin 81 Mg Tab.Chew PO 12/18/20 11:52 324 mg ONETIME ONE Administration Sodium Chloride 1,000 mls @ 999 mls/hr 12/18/20 11:51 12/18/20 12:05 Normal Saline IV 12/18/20 12:51 999 mls/hr .Bolus ONE Administration Sodium Chloride 1,000 mls @ 999 mls/hr 12/18/20 13:49 12/18/20 14:01 Normal Saline IV 12/18/20 14:49 999 mls/hr .Bolus ONE Administration Lorazepam 1 mg 12/18/20 11:51 12/18/20 12:04 Lorazepam 2 Mg/Ml Sdv IVPUSH 12/18/20 11:52 1 mg ONETIME ONE Administration - Re-Assessments/Exams Free Text/Narrative Re-Assessment/Exam: 12/18/20 14:54 Patient's pain is improving. Labs are unremarkable troponin x2 -. Will discharge home with PMD follow-up. Return precautions discussed at length. Patient understands and agrees with plan. Departure - Departure Time of Disposition: 14:55 Disposition: Home, Self-Care 01 Condition: Good Clinical Impression: Chest pain Qualifiers: Chest pain type: unspecified Qualified Code(s): R07.9 - Chest pain, unspecified - Discharge Information Instructions: Nonspecific Chest Pain, Adult Forms: ED Department Discharge Additional Instructions: Your emergency department work-up was unremarkable, however, you should follow- up with your primary care physician and discuss what happened today in case they want to do any further outpatient testing. If your pain comes severe or you are having difficulty breathing then please come back to the emergency department so we can reassess you. The following information is given to patients seen in the emergency department who are being discharged to home. This information is to outline your options for follow-up care. We provide all patients seen in our emergency department with a follow-up referral. The need for follow-up, as well as the timing and circumstances, are variable depending upon the specifics of your emergency department visit. If you don't have a primary care physician on staff, we will provide you with a referral. We always advise you to contact your personal physician following an emergency department visit to inform them of the circumstance of the visit and for follow-up with them and/or the need for any referrals to a consulting specialist. The emergency department will also refer you to a specialist when appropriate. This referral assures that you have the opportunity for follow-up care with a specialist. All of these measure are taken in an effort to provide you with optimal care, which includes your follow-up. Under all circumstances we always encourage you to contact your private physician who remains a resource for coordinating your care. When calling for follow-up care, please make the office aware that this follow-up is from your recent emergency room visit. If for any reason you are refused follow-up, please contact the [facility] Emergency Department at and asked to speak to the emergency department charge nurse. Please follow up with your primary care physician. If you do not have a primary care physician, see below: [facility] [address] [place] [address] [phone] [facility] [address] [place] [address] [facility] [address] [place] [address] Sepsis Event Note (ED) - Evaluation Sepsis Screening Result: No Definite Risk - Focused Exam Vital Signs: Vital Signs Temp Pulse Resp BP Pulse Ox 12/18/20 13:48 102 H 18 116/77 97 12/18/20 13:06 98.2 F 96 18 114/74 97 12/18/20 12:30 82 18 121/73 97 12/18/20 11:51 97.8 F 121 H 18 132/75 98 - My Orders Last 24 Hours: My Active Orders 12/18/20 11:51 Cardiac Monitoring [RC] . DIRECTED Pulse Oximetry [RC] ASDIRECTED Sodium Chloride 0.9% [Saline Flush] 10 ml FLUSH ASDIRECTED PRN Sodium Chloride 0.9% [Saline Flush] 2.5 ml FLUSH ASDIRECTED PRN Saline Lock Insert [OM.PC] Stat - Assessment/Plan Last 24 Hours: My Active Orders 12/18/20 11:51 Cardiac Monitoring [RC] . DIRECTED Pulse Oximetry [RC] ASDIRECTED Sodium Chloride 0.9% [Saline Flush] 10 ml FLUSH ASDIRECTED PRN Sodium Chloride 0.9% [Saline Flush] 2.5 ml FLUSH ASDIRECTED PRN Saline Lock Insert [OM.PC] Stat
[2020-12-18 12:23] LABS: BLOOD UREA NITROGEN,BUN 14 mg/dL (7.0-18.0); CARBON DIOXIDE,CO2 23.6 mmol/L (21.0-32.0); CHLORIDE,CL 105 mmol/L (98-107); GLUCOSE RANDOM 88 mg/dL (74-106); SODIUM,NA 138 mmol/L (136-145)
--- NOTE | 2020-12-18 12:51 | CR ---
INDICATION: Shortness of breath. Chest pain. TECHNIQUE: Chest 1 views COMPARISON: 05/07/2017. FINDINGS: Cardiovascular and mediastinum: Heart size and vasculature are normal in caliber and appearance. Lungs and pleural spaces: Lungs are clear. No sign of infiltrate or mass. No sign of pleural effusion. No pneumothorax. Bones and soft tissues: No significant findings. B[place] shunt catheter again demonstrated. IMPRESSION: No acute findings and no significant changes from the prior exam. Dictated by Daniel Lowery MD @ 12/18/2020 12:50:26 PM (Electronically Signed)
[2020-12-18] MEDS ORDERED: Acetaminophen 500 MG Tab PO ONE (13:49)
[2020-12-18 15:17] VITALS: BP 111/73; PULSE 84
== END 2020-12-18 15:10 | disposition home or self-care (01) ==
LOC: MW.ED 11:46
DX: R07.9 Chest pain, unspecified (principal); Z20.822 Contact with and (suspected) exposure to COVID-19
CPT/HCPCS: 71045; 80053; 83605; 83735; 84484; 85025; 85379; 85610; 85730; 86850; 86900; 86901; 93005; 96374; 99285; A9270; J2060; J7030; U0002

== ENCOUNTER 2021-07-18 15:18 | Emergency (ER) | payer MEDICARE, MEDICAID ==
[2021-07-18 16:51] VITALS: BP 117/76; PULSE 83
[2021-07-18] MEDS ORDERED: Prochlorperazine 10 MG/2 ML SDV IM STA (17:40)
[2021-07-18 19:07] LABS: BLOOD UREA NITROGEN,BUN 9 mg/dL (7.0-18.0); CARBON DIOXIDE,CO2 22.3 mmol/L (21.0-32.0); CHLORIDE,CL 105 mmol/L (98-107); GLUCOSE RANDOM 117 mg/dL (74-106); POTASSIUM,K 3.8 mmol/L (3.5-5.1); SODIUM,NA 139 mmol/L (136-145)
== END 2021-07-18 20:54 ==
LOC: MW.ED 15:18
DX: G91.1 Obstructive hydrocephalus (principal); Z79.899 Other long term (current) drug therapy
CPT/HCPCS: 36415; 70450; 80053; 83735; 85025; 96372; 99284; J0780; 99285

== ENCOUNTER 2022-03-02 12:23 | Emergency (ER) | payer MEDICARE, MEDICAID ==
[2022-03-02 13:28] VITALS: BP 141/80; PULSE 95
[2022-03-02 13:36] LABS: POTASSIUM,K 3.8 mmol/L (3.5-5.1)
[2022-03-02] MEDS ORDERED: traMADol 50 MG Tab PO ONE (14:40)
[2022-03-02] MEDS ORDERED: Phenazopyridine 200 MG Tab PO ONE (16:52)
== END 2022-03-02 17:20 | disposition home or self-care (01) ==
LOC: MW.ED 12:23
DX: R10.30 Lower abdominal pain, unspecified (principal); R30.0 Dysuria; Z79.899 Other long term (current) drug therapy; Z90.49 Acquired absence of other specified parts of digestive tract
CPT/HCPCS: 36415; 70250; 70360; 71046; 74019; 76856; 80053; 81003; 81025; 83690; 85025; 99284; A9270

== ENCOUNTER 2024-12-23 09:42 | Emergency (ER) | payer MEDICARE, MEDICAID ==
[2024-12-23] MEDS ORDERED: Sodium Chloride 0.9% 10 ML Syringe FLUSH PRN (10:08)
[2024-12-23] MEDS ORDERED: Sodium Chloride 0.9% 2.5 ML Syringe FLUSH PRN (10:08)
[2024-12-23 10:13] LABS: BASOPHILS ABSOLUTE AUTO 0.02 K/uL (0.00-0.20); BASOPHILS PERCENT AUTO 0.3 % (0.0-1.0); EOSINOPHILS ABSOLUTE AUTO 0.07 K/uL (0.00-0.45); EOSINOPHILS PERCENT AUTO 1.0 % (0.0-6.0); IMMATURE GRAN ABSOLUTE AUTO 0.01 K/uL (0.00-0.05); IMMATURE GRAN PERCENT AUTO 0.1 % (0.0-0.4); LYMPHOCYTES ABSOLUTE AUTO 1.23 K/uL (1.00-4.80); LYMPHOCYTES PERCENT AUTO 17.1 % (24.0-44.0); MEAN PLATELET VOLUME 9.5 fL (9.4-12.3); MONOCYTES ABSOLUTE AUTO 0.84 K/uL (0.00-0.80); MONOCYTES PERCENT AUTO 11.7 % (0.0-8.0); NEUTROPHILS ABSOLUTE AUTO 5.03 K/uL (1.80-7.70); NEUTROPHILS PERCENT AUTO 69.8 % (41.0-71.0); NRBC ABSOLUTE 0.00 K/uL (0.00-0.02); NRBC PERCENT 0.0 /100WBC (0.0-0.2); PLATELET COUNT,PLT 215 K/uL (150-400); RED BLOOD CELL COUNT 4.75 M/uL (4.10-5.30); WHITE BLOOD CELL COUNT,WBC 7.20 K/uL (3.9-11.3)
[2024-12-23 10:25] LABS: APPEARANCE,URINE CLOUDY; GLUCOSE,URINE NEGATIVE (NEGATIVE); OCCULT BLOOD,URINE LARGE (NEGATIVE)
[2024-12-23 10:28] LABS: EPITHELIAL CELLS,URINE FEW (NONE-FEW)
[2024-12-23] MEDS: Prochlorperazine 10 MG/2 ML SDV IVPUSH ONE (10:35)
[2024-12-23] MEDS: Ketorolac 30 MG/ML SDV IVPUSH ONE (10:35)
[2024-12-23] MEDS: diphenhydrAMINE 50 MG/ML SDV IVPUSH ONE (10:36)
[2024-12-23] MEDS: Dexamethasone Sod Phos Preservative Free 10 MG/ML Vial IVPUSH ONE (10:36)
[2024-12-23 10:41] LABS: A/G RATIO 1.1 (0.9-1.6); ALANINE AMINOTRANSFERASE,ALT 25.0 IU/L (14-63); ASPARTATE AMNIOTRANSFERASE,AST 17.0 IU/L (15-37); BILIRUBIN TOTAL 0.4 mg/dL (0.2-1.0); BLOOD UREA NITROGEN,BUN 7.0 mg/dL (7.0-18.0); CARBON DIOXIDE,CO2 27.7 mmol/L (21.0-32.0); CHLORIDE,CL 103.0 mmol/L (98-107); CREATININE 0.9 mg/dL (0.6-1.0); EST CRCL DRUG DOSING (CG) 62.07 mL/min; GLUCOSE RANDOM 93.0 mg/dL (74-106); POTASSIUM,K 4.7 mmol/L (3.5-5.1); PROTEIN TOTAL,TP 7.7 g/dL (6.4-8.2); SODIUM,NA 139.0 mmol/L (136-145)
[2024-12-23 10:43] LABS: ESTIMATED GFR 85.0 mL/min (>60)
[2024-12-23 15:07] VITALS: BP 101/66; PULSE 82
== END 2024-12-23 15:08 | disposition home or self-care (01) ==
LOC: MW.ED 09:42
DX: R51.9 Headache, unspecified (principal); R50.9 Fever, unspecified; K59.00 Constipation, unspecified; Z75.3 Unavailability and inaccessibility of health-care facilities; Z79.899 Other long term (current) drug therapy
CPT/HCPCS: 36415; 70250; 70360; 70450; 71045; 71046; 74019; 80053; 81001; 83605; 85025; 87426; 87428; 87651; 96361; 96374; 96375; 99284; A9270; J0780; J1100; J1200; J1885; J7030; 93010

== ENCOUNTER 2024-12-29 14:32 | Inpatient (IN) | payer MEDICARE, MEDICAID ==
[2024-12-29 15:32] LABS: APPEARANCE,URINE CLEAR; GLUCOSE,URINE NEGATIVE (NEGATIVE); OCCULT BLOOD,URINE NEGATIVE (NEGATIVE)
[2024-12-29] MEDS: Lactated Ringers 1,000 ML IV ONE ×2 (15:58→17:47)
[2024-12-29 16:24] LABS: BASOPHILS ABSOLUTE AUTO 0.05 K/uL (0.00-0.20); BASOPHILS PERCENT AUTO 0.5 % (0.0-1.0); EOSINOPHILS ABSOLUTE AUTO 0.21 K/uL (0.00-0.45); EOSINOPHILS PERCENT AUTO 2.1 % (0.0-6.0); IMMATURE GRAN ABSOLUTE AUTO 0.05 K/uL (0.00-0.05); IMMATURE GRAN PERCENT AUTO 0.5 % (0.0-0.4); LYMPHOCYTES ABSOLUTE AUTO 1.93 K/uL (1.00-4.80); LYMPHOCYTES PERCENT AUTO 19.6 % (24.0-44.0); MEAN PLATELET VOLUME 9.3 fL (9.4-12.3); MONOCYTES ABSOLUTE AUTO 0.74 K/uL (0.00-0.80); MONOCYTES PERCENT AUTO 7.5 % (0.0-8.0); NEUTROPHILS ABSOLUTE AUTO 6.87 K/uL (1.80-7.70); NEUTROPHILS PERCENT AUTO 69.8 % (41.0-71.0); NRBC ABSOLUTE 0.00 K/uL (0.00-0.02); NRBC PERCENT 0.0 /100WBC (0.0-0.2); PLATELET COUNT,PLT 318 K/uL (150-400); RED BLOOD CELL COUNT 4.57 M/uL (4.10-5.30); WHITE BLOOD CELL COUNT,WBC 9.85 K/uL (3.9-11.3)
[2024-12-29 16:54] LABS: A/G RATIO 0.9 (0.9-1.6); ALANINE AMINOTRANSFERASE,ALT 27.0 IU/L (14-63); ASPARTATE AMNIOTRANSFERASE,AST 33.0 IU/L (15-37); BILIRUBIN TOTAL 0.3 mg/dL (0.2-1.0); BLOOD UREA NITROGEN,BUN 6.0 mg/dL (7.0-18.0); CARBON DIOXIDE,CO2 21.8 mmol/L (21.0-32.0); CHLORIDE,CL 104.0 mmol/L (98-107); CREATININE 0.9 mg/dL (0.6-1.0); EST CRCL DRUG DOSING (CG) 62.07 mL/min; GLUCOSE RANDOM 100.0 mg/dL (74-106); POTASSIUM,K 4.0 mmol/L (3.5-5.1); PROTEIN TOTAL,TP 7.5 g/dL (6.4-8.2); SODIUM,NA 139.0 mmol/L (136-145)
[2024-12-29 16:55] LABS: ESTIMATED GFR 85.0 mL/min (>60)
[2024-12-29 16:59] LABS: LACTIC ACID 2.4 mmol/L (0.4-2.0)
[2024-12-29] MEDS: cefTRIAXone 2 GM in Water For Injection, Sterile 20 ML IVPUSH ONE (17:34)
[2024-12-29] MEDS ORDERED: Naloxone 0.4 MG/ML SDV IVPUSH PRN (18:47)
[2024-12-29] MEDS: Iopamidol 755 MG/ML 500 ML Multipack Bottle IVPUSH STA (19:29)
[2024-12-29] MEDS ORDERED: Ondansetron 4 MG/2 ML SDV IVPUSH PRN (20:21)
[2024-12-29] MEDS ORDERED: Sodium Chloride 0.9% 10 ML Syringe FLUSH PRN (20:21)
[2024-12-29] MEDS ORDERED: Sodium Chloride 0.9% 2.5 ML Syringe FLUSH PRN (20:21)
[2024-12-29 20:48] LABS: AMPHETAMINES SCREEN, URINE NEGATIVE (CUTOFF=500); BUPRENORPHINE SCREEN,URINE NEGATIVE (CUTOFF=10); METHADONE SCREEN, URINE NEGATIVE (CUTOFF=200); METHAMPHETAMINES SCREEN, URINE NEGATIVE (CUTOFF=500); OXYCODONE SCREEN,URINE NEGATIVE (CUT0FF=100); PCP SCREEN,URINE NEGATIVE (CUTOFF=25); THC SCREEN,URINE 20 NG/ML NEGATIVE (CUTOFF=50)
[2024-12-29] MEDS: cefTRIAXone 1 GM in Water For Injection, Sterile 10 ML IVPUSH SCH (20:52)
[2024-12-29] MEDS: Benzocaine/Cetylpyridinium/Menthol Lozenge MUCMEM PRN (22:08)
[2024-12-30 05:41] LABS: BASOPHILS ABSOLUTE AUTO 0.04 K/uL (0.00-0.20); BASOPHILS PERCENT AUTO 0.5 % (0.0-1.0); EOSINOPHILS ABSOLUTE AUTO 0.24 K/uL (0.00-0.45); EOSINOPHILS PERCENT AUTO 2.8 % (0.0-6.0); IMMATURE GRAN ABSOLUTE AUTO 0.02 K/uL (0.00-0.05); IMMATURE GRAN PERCENT AUTO 0.2 % (0.0-0.4); LYMPHOCYTES ABSOLUTE AUTO 2.47 K/uL (1.00-4.80); LYMPHOCYTES PERCENT AUTO 29.1 % (24.0-44.0); MEAN PLATELET VOLUME 9.3 fL (9.4-12.3); MONOCYTES ABSOLUTE AUTO 0.80 K/uL (0.00-0.80); MONOCYTES PERCENT AUTO 9.4 % (0.0-8.0); NEUTROPHILS ABSOLUTE AUTO 4.92 K/uL (1.80-7.70); NEUTROPHILS PERCENT AUTO 58.0 % (41.0-71.0); NRBC ABSOLUTE 0.00 K/uL (0.00-0.02); NRBC PERCENT 0.0 /100WBC (0.0-0.2); PLATELET COUNT,PLT 273 K/uL (150-400); RED BLOOD CELL COUNT 3.83 M/uL (4.10-5.30); WHITE BLOOD CELL COUNT,WBC 8.49 K/uL (3.9-11.3)
[2024-12-30 06:00] LABS: BLOOD UREA NITROGEN,BUN 4.0 mg/dL (7.0-18.0); CARBON DIOXIDE,CO2 23.1 mmol/L (21.0-32.0); CHLORIDE,CL 110.0 mmol/L (98-107); CREATININE 0.7 mg/dL (0.6-1.0); EST CRCL DRUG DOSING (CG) 79.8 mL/min; GLUCOSE RANDOM 87.0 mg/dL (74-106); POTASSIUM,K 3.9 mmol/L (3.5-5.1); SODIUM,NA 145.0 mmol/L (136-145)
[2024-12-30 06:09] LABS: ESTIMATED GFR 115.0 mL/min (>60)
[2024-12-30] MEDS: NIFEdipine 30 MG Tab.ER PO SCH (12:32)
[2024-12-30] MEDS: cefTRIAXone 1 GM in Water For Injection, Sterile 10 ML IVPUSH SCH (17:32)
[2024-12-30] MEDS: Fluticasone NASAL Spray 16 GM Bottle NASBOTH SCH (17:34)
[2024-12-31 05:46] LABS: BASOPHILS ABSOLUTE AUTO 0.04 K/uL (0.00-0.20); BASOPHILS PERCENT AUTO 0.6 % (0.0-1.0); EOSINOPHILS ABSOLUTE AUTO 0.25 K/uL (0.00-0.45); EOSINOPHILS PERCENT AUTO 3.7 % (0.0-6.0); IMMATURE GRAN ABSOLUTE AUTO 0.04 K/uL (0.00-0.05); IMMATURE GRAN PERCENT AUTO 0.6 % (0.0-0.4); LYMPHOCYTES ABSOLUTE AUTO 2.30 K/uL (1.00-4.80); LYMPHOCYTES PERCENT AUTO 33.7 % (24.0-44.0); MEAN PLATELET VOLUME 8.9 fL (9.4-12.3); MONOCYTES ABSOLUTE AUTO 0.51 K/uL (0.00-0.80); MONOCYTES PERCENT AUTO 7.5 % (0.0-8.0); NEUTROPHILS ABSOLUTE AUTO 3.69 K/uL (1.80-7.70); NEUTROPHILS PERCENT AUTO 53.9 % (41.0-71.0); NRBC ABSOLUTE 0.00 K/uL (0.00-0.02); NRBC PERCENT 0.0 /100WBC (0.0-0.2); PLATELET COUNT,PLT 286 K/uL (150-400); RED BLOOD CELL COUNT 4.12 M/uL (4.10-5.30); WHITE BLOOD CELL COUNT,WBC 6.83 K/uL (3.9-11.3)
[2024-12-31 06:11] LABS: A/G RATIO 0.8 (0.9-1.6); ALANINE AMINOTRANSFERASE,ALT 24.0 IU/L (14-63); ASPARTATE AMNIOTRANSFERASE,AST 25.0 IU/L (15-37); BILIRUBIN TOTAL 0.3 mg/dL (0.2-1.0); BLOOD UREA NITROGEN,BUN 2.0 mg/dL (7.0-18.0); CARBON DIOXIDE,CO2 24.6 mmol/L (21.0-32.0); CHLORIDE,CL 108.0 mmol/L (98-107); CREATININE 0.7 mg/dL (0.6-1.0); EST CRCL DRUG DOSING (CG) 79.8 mL/min; GLUCOSE RANDOM 89.0 mg/dL (74-106); POTASSIUM,K 3.6 mmol/L (3.5-5.1); PROTEIN TOTAL,TP 6.5 g/dL (6.4-8.2); SODIUM,NA 141.0 mmol/L (136-145)
[2024-12-31 06:23] LABS: ESTIMATED GFR 115.0 mL/min (>60)
[2024-12-31 08:03] LABS: BORDETELLA PARAPERT IS1001 Not Detected (Not Detected)
[2024-12-31 13:01] VITALS: BP 117/67; PULSE 88
== END 2024-12-31 13:30 | DRG 194 ==
LOC: MW.ED 14:32 → MW.MS 20:26
PROVIDERS: ADMIT Family Medicine; ATTEND Family Medicine
DX: J18.9 Pneumonia, unspecified organism (principal); E87.20 Acidosis, unspecified; F41.9 Anxiety disorder, unspecified; Z79.899 Other long term (current) drug therapy; Z90.49 Acquired absence of other specified parts of digestive tract; Z98.890 Other specified postprocedural states
CPT/HCPCS: 36415; 70250; 70360; 71046 ×2; 71275; 74019; 74177; 80053; 80305; 81003; 81025; 83605 ×2; 84484; 84703; 85025; 87040 ×2; 87426; 87899 ×2; 96361; 96365; 96375; 99285; A4216; A9270; J0456; J0696; J2270; J7030; J7050; J7120 ×2; Q9967; 80048; 87486; 87581; 87633; 93005; 99284